=== PATIENT | male | born 1980 | race Caucasian/White ===

== ENCOUNTER 2020-10-02 10:54 | Inpatient (IN) | payer OTHER ==
[2020-10-02] MEDS ORDERED: MAGNESIUM HYDROX 2400MG/30ML ORAL SUSPENSION 30 ML CUP PO PRN (13:05)
[2020-10-02] MEDS ORDERED: METHADONE HCL 10 MG TABLET (FOR DETOX USE ONLY) PO ONE (13:05)
[2020-10-02] MEDS ORDERED: BISMUTH SUBSALICYLATE 262 MG/15 ML BTL PO PRN (13:05)
[2020-10-02] MEDS ORDERED: MAGNESIUM CITRATE 300 ML BOTTLE PO PRN (13:05)
[2020-10-02] MEDS ORDERED: NICOTINE POLACRILEX 2 MG GUM BUC PRN (13:05)
[2020-10-02] MEDS ORDERED: MENTHOL/PHENOL 1 EACH UD MM PRN (13:05)
[2020-10-02] MEDS ORDERED: MAG HYDROX/AL HYDROX/SIMETH 30 ML UNIT-DOSE CUP PO PRN (13:05)
[2020-10-02] MEDS ORDERED: IBUPROFEN 400 MG TABLET (FP) PO PRN (13:05)
[2020-10-02] MEDS ORDERED: ONDANSETRON *ODT* 4 MG TABLET SL PRN (13:05)
[2020-10-02] MEDS ORDERED: ACETAMINOPHEN 325 MG TABLET (FP) PO PRN ×2 (13:05)
[2020-10-02 13:07] VITALS: BMI 21.4
[2020-10-02] MEDS: hydrOXYzine PAMOATE 25 MG CAPSULE (FP) PO SCH ×3 (14:15→22:16)
[2020-10-02] MEDS: NICOTINE 14 MG/24 HOURS TOPICAL PATCH TD SCH (14:19)
[2020-10-02 17:21] LABS: HEMATOCRIT 36.5 % (35.4-49); HEMOGLOBIN 11.9 GM/dL (11.7-16.9); MCH 27.9 pg (25.7-33.7); MCHC 32.5 g/dl (32.0-35.9); MEAN CELL VOLUME 85.9 fl (80-96); MEAN PLT VOLUME 8.4 fl (7.5-11.1); PLATELET COUNT 235 K/MM3 (134-434); RBC 4.25 M/mm3 (4.00-5.60); RDW 14.2 % (11.9-15.9); WHITE BLOOD COUNT 5.4 K/mm3 (4.0-10.0)
[2020-10-02 17:22] LABS: POTASSIUM 4.6 mmol/L (3.5-5.1)
[2020-10-02 17:27] LABS: ALBUMIN 3.4 g/dl (3.4-5.0); BLOOD UREA NITROGEN 14.5 mg/dL (7-18); CALCIUM 8.6 mg/dL (8.5-10.1)
[2020-10-02 17:30] LABS: CREATININE 0.8 mg/dL (0.55-1.3)
[2020-10-02 17:31] LABS: BILIRUBIN,TOTAL 0.6 mg/dL (0.2-1); TOT PROT 7.2 g/dl (6.4-8.2)
[2020-10-02] MEDS: THIAMINE HCL 100 MG TABLET (FP) PO SCH (22:17)
[2020-10-02] MEDS: MELATONIN 5 MG TABLETS PO SCH (22:17)
[2020-10-03] MEDS: hydrOXYzine PAMOATE 25 MG CAPSULE (FP) PO SCH (06:24)
[2020-10-03] MEDS ORDERED: METHADONE HCL 5 MG TABLET (FOR DETOX USE ONLY) ONE (08:56)
[2020-10-03] MEDS ORDERED: METHADONE HCL 10 MG TABLET (FOR DETOX USE ONLY) ONE (08:56)
[2020-10-03] MEDS ORDERED: METHADONE (DETOX) 20 MG, METHADONE (DETOX) 5 MG PO ONE (10:00)
[2020-10-03] MEDS: PRENATAL VITAMINS W/ FOLIC ACID TABLET (FP) PO SCH (10:56)
[2020-10-03] MEDS: NICOTINE 14 MG/24 HOURS TOPICAL PATCH TD SCH (10:56)
[2020-10-03] MEDS: cloNIDine HCL 0.1 MG TABLET PO PRN (17:06)
[2020-10-03] MEDS: hydrOXYzine PAMOATE 25 MG CAPSULE (FP) PO PRN ×2 (17:06→22:29)
[2020-10-03] MEDS: METHOCARBAMOL 500 MG TABLET PO PRN (17:06)
[2020-10-03] MEDS: MELATONIN 5 MG TABLETS PO SCH (22:29)
[2020-10-03] MEDS: THIAMINE HCL 100 MG TABLET (FP) PO SCH (22:29)
[2020-10-04] MEDS ORDERED: METHADONE HCL 10 MG TABLET (FOR DETOX USE ONLY) PO ONE (10:00)
[2020-10-04] MEDS: NICOTINE 14 MG/24 HOURS TOPICAL PATCH TD SCH (10:27)
[2020-10-04] MEDS: PRENATAL VITAMINS W/ FOLIC ACID TABLET (FP) PO SCH (10:27)
[2020-10-04] MEDS: METHOCARBAMOL 500 MG TABLET PO PRN (22:45)
[2020-10-04] MEDS: cloNIDine HCL 0.1 MG TABLET PO PRN (22:45)
[2020-10-04] MEDS: hydrOXYzine PAMOATE 25 MG CAPSULE (FP) PO PRN (22:46)
[2020-10-04] MEDS: THIAMINE HCL 100 MG TABLET (FP) PO SCH (22:46)
[2020-10-04] MEDS: MELATONIN 5 MG TABLETS PO SCH (22:46)
[2020-10-05] MEDS ORDERED: METHADONE HCL 5 MG TABLET (FOR DETOX USE ONLY) ONE (09:28)
[2020-10-05] MEDS ORDERED: METHADONE HCL 10 MG TABLET (FOR DETOX USE ONLY) ONE (09:28)
[2020-10-05] MEDS ORDERED: METHADONE (DETOX) 10 MG, METHADONE (DETOX) 5 MG PO ONE (10:00)
[2020-10-05] MEDS: PRENATAL VITAMINS W/ FOLIC ACID TABLET (FP) PO SCH (10:29)
[2020-10-05] MEDS: NICOTINE 14 MG/24 HOURS TOPICAL PATCH TD SCH (10:29)
[2020-10-05] MEDS: METHOCARBAMOL 500 MG TABLET PO PRN (19:35)
[2020-10-05] MEDS: hydrOXYzine PAMOATE 25 MG CAPSULE (FP) PO PRN (19:35)
[2020-10-05] MEDS: THIAMINE HCL 100 MG TABLET (FP) PO SCH (22:42)
[2020-10-05] MEDS: MELATONIN 5 MG TABLETS PO SCH (22:42)
[2020-10-06] MEDS: METHADONE HCL 10 MG TABLET (FOR DETOX USE ONLY) PO ONE ×2 (06:54→07:05)
[2020-10-06 08:20] VITALS: BP 95/49; PULSE 53; TEMP 97.1
[2020-10-06] MEDS ORDERED: METHADONE HCL 10 MG TABLET (FOR DETOX USE ONLY) PO ONE (10:00)
[2020-10-07] MEDS ORDERED: METHADONE HCL 5 MG TABLET (FOR DETOX USE ONLY) PO ONE (06:00)
== END 2020-10-06 11:30 | disposition home or self-care (01) | DRG 773 ==
LOC: YASAS 10:54 → Y6N 13:07
PROVIDERS: ADMIT Allergy & Immunology; ATTEND Allergy & Immunology
PROC: HZ2ZZZZ Detoxification Services for Substance Abuse Treatment (ICD-10-PCS; principal; 2020-10-02)
DX: F11.23 Opioid dependence with withdrawal (principal); F14.20 Cocaine dependence, uncomplicated; F17.210 Nicotine dependence, cigarettes, uncomplicated; F19.280 Other psychoactive substance dependence with psychoactive substance-induced anxiety disorder; F19.282 Other psychoactive substance dependence with psychoactive substance-induced sleep disorder; M54.5 Low back pain; G89.29 Other chronic pain; K64.9 Unspecified hemorrhoids; U07.1 COVID-19
CPT/HCPCS: 36415; 80053; 85027; 86780; 93005; 93010; C9803; J0735; Q0162; U0003

== ENCOUNTER 2021-07-25 09:59 | Inpatient (IN) | payer OTHER ==
[2021-07-25 10:46] VITALS: BMI 22.3
[2021-07-25] MEDS ORDERED: ONDANSETRON *ODT* 4 MG TABLET SL PRN (11:05)
[2021-07-25] MEDS ORDERED: MENTHOL/PHENOL 1 EACH UD MM PRN (11:05)
[2021-07-25] MEDS ORDERED: MAG HYDROX/AL HYDROX/SIMETH 30 ML UNIT-DOSE CUP PO PRN (11:05)
[2021-07-25] MEDS ORDERED: cloNIDine HCL 0.1 MG TABLET PO PRN (11:05)
[2021-07-25] MEDS ORDERED: MAGNESIUM HYDROX 2400MG/30ML ORAL SUSPENSION 30 ML CUP PO PRN (11:05)
[2021-07-25] MEDS ORDERED: BISMUTH SUBSALICYLATE 524 MG/30 ML PO PRN (11:05)
[2021-07-25] MEDS ORDERED: MAGNESIUM CITRATE 300 ML BOTTLE PO PRN (11:05)
[2021-07-25] MEDS ORDERED: ACETAMINOPHEN 325 MG TABLET (FP) PO PRN (11:05)
[2021-07-25] MEDS ORDERED: methaDONE HCL 10 MG TABLET (FOR DETOX USE ONLY) ONE (11:22)
[2021-07-25] MEDS: methaDONE HCL 10 MG TABLET (FOR DETOX USE ONLY) PO ONE (11:25)
[2021-07-25] MEDS: PRENATAL VITAMINS W/ FOLIC ACID TABLET (FP) PO SCH (12:45)
[2021-07-25] MEDS: ACETAMINOPHEN 325 MG TABLET (FP) PO PRN (12:45)
[2021-07-25] MEDS: NICOTINE 14 MG/24 HOURS TOPICAL PATCH TD SCH (12:47)
[2021-07-25 13:56] LABS: HEMATOCRIT 40.7 % (35.4-49); HEMOGLOBIN 13.7 GM/dL (11.7-16.9); MCH 28.9 pg (25.7-33.7); MCHC 33.7 g/dl (32.0-35.9); MEAN CELL VOLUME 85.7 fl (80-96); PLATELET COUNT 343 10^3/uL (134-434); RBC 4.75 M/mm3 (4.00-5.60); RDW 15.1 % (11.9-15.9); WHITE BLOOD COUNT 11.4 K/mm3 (4.0-10.0)
[2021-07-25] MEDS: hydrOXYzine PAMOATE 25 MG CAPSULE (FP) PO SCH ×3 (14:10→22:12)
[2021-07-25 14:24] LABS: CALCIUM 8.9 mg/dL (8.5-10.1)
[2021-07-25 14:25] LABS: ALBUMIN 3.8 g/dl (3.4-5.0); BLOOD UREA NITROGEN 17.1 mg/dL (7-18)
[2021-07-25 14:28] LABS: CREATININE 1.2 mg/dL (0.55-1.3)
[2021-07-25 14:30] LABS: BILIRUBIN,TOTAL 2.1 mg/dL (0.2-1); TOT PROT 8.3 g/dl (6.4-8.2)
[2021-07-25 14:59] LABS: HIV INTERPRETATION NEGATIVE (NEGATIVE)
[2021-07-25] MEDS ORDERED: MASKS NR ONE (20:41)
[2021-07-25] MEDS: THIAMINE HCL 100 MG TABLET (FP) PO SCH (22:12)
[2021-07-25] MEDS: MELATONIN 5 MG TABLETS PO SCH (22:12)
[2021-07-25] MEDS: clonazePAM 0.5 MG ODT TABLETS SL PRN (22:14)
[2021-07-25] MEDS: METHOCARBAMOL 500 MG TABLET PO PRN (22:14)
[2021-07-26] MEDS: IBUPROFEN 400 MG TABLET (FP) PO PRN (03:42)
[2021-07-26] MEDS: hydrOXYzine PAMOATE 25 MG CAPSULE (FP) PO SCH ×5 (05:38→22:07)
[2021-07-26] MEDS ORDERED: methaDONE HCL 10 MG TABLET (FOR DETOX USE ONLY) ONE (09:44)
[2021-07-26] MEDS: PRENATAL VITAMINS W/ FOLIC ACID TABLET (FP) PO SCH (10:40)
[2021-07-26] MEDS: NICOTINE 14 MG/24 HOURS TOPICAL PATCH TD SCH (10:41)
[2021-07-26] MEDS: NICOTINE POLACRILEX 2 MG GUM BC PRN (14:25)
[2021-07-26] MEDS: NICOTINE 21 MG/24 HOURS TOPICAL PATCH TD SCH (14:30)
[2021-07-26] MEDS: MELATONIN 5 MG TABLETS PO SCH (22:06)
[2021-07-26] MEDS: ACETAMINOPHEN 325 MG TABLET (FP) PO PRN (22:07)
[2021-07-26] MEDS: THIAMINE HCL 100 MG TABLET (FP) PO SCH (22:07)
[2021-07-26] MEDS: clonazePAM 0.5 MG ODT TABLETS SL PRN (22:08)
[2021-07-27] MEDS: hydrOXYzine PAMOATE 25 MG CAPSULE (FP) PO SCH ×5 (06:32→22:19)
[2021-07-27 09:57] LABS: HEMATOCRIT 37.2 % (35.4-49); HEMOGLOBIN 12.6 GM/dL (11.7-16.9); MCHC 33.8 g/dl (32.0-35.9); MEAN CELL VOLUME 85.7 fl (80-96); MEAN PLT VOLUME 7.9 fl (7.5-11.1); PLATELET COUNT 253 10^3/uL (134-434); RBC 4.34 M/mm3 (4.00-5.60); RDW 15.4 % (11.9-15.9); WHITE BLOOD COUNT 9.4 K/mm3 (4.0-10.0)
[2021-07-27] MEDS ORDERED: methaDONE HCL 10 MG TABLET (FOR DETOX USE ONLY) PO ONE (10:00)
[2021-07-27] MEDS: NICOTINE 21 MG/24 HOURS TOPICAL PATCH TD SCH (10:17)
[2021-07-27] MEDS: IBUPROFEN 400 MG TABLET (FP) PO PRN ×2 (10:18→22:21)
[2021-07-27] MEDS: PRENATAL VITAMINS W/ FOLIC ACID TABLET (FP) PO SCH (10:19)
[2021-07-27] MEDS: NICOTINE 10 MG CARTRIDGE (INHALER) IH PRN ×2 (14:45→21:18)
[2021-07-27] MEDS: MELATONIN 5 MG TABLETS PO SCH (22:19)
[2021-07-27] MEDS: THIAMINE HCL 100 MG TABLET (FP) PO SCH (22:19)
[2021-07-27] MEDS: METHOCARBAMOL 500 MG TABLET PO PRN (23:51)
[2021-07-28] MEDS: hydrOXYzine PAMOATE 25 MG CAPSULE (FP) PO SCH ×5 (06:04→22:16)
[2021-07-28] MEDS ORDERED: methaDONE HCL 10 MG TABLET (FOR DETOX USE ONLY) ONE (09:03)
[2021-07-28] MEDS: METHOCARBAMOL 500 MG TABLET PO PRN ×2 (10:12→22:18)
[2021-07-28] MEDS: PRENATAL VITAMINS W/ FOLIC ACID TABLET (FP) PO SCH (10:12)
[2021-07-28] MEDS: NICOTINE 21 MG/24 HOURS TOPICAL PATCH TD SCH (10:12)
[2021-07-28] MEDS: clonazePAM 0.5 MG ODT TABLETS SL PRN (10:13)
[2021-07-28] MEDS: NICOTINE 10 MG CARTRIDGE (INHALER) IH PRN ×2 (13:38→22:20)
[2021-07-28] MEDS: IBUPROFEN 400 MG TABLET (FP) PO PRN ×2 (13:40→22:18)
[2021-07-28] MEDS ORDERED: WITCH HAZEL 50% (TUCKS) 40 PAD/JAR PAD TP PRN (13:53)
[2021-07-28] MEDS: HYDROCORTISONE 2.5% TOPICAL CREAM 30 GM TUBE TP SCH ×2 (15:18→22:17)
[2021-07-28] MEDS: ACETAMINOPHEN 325 MG TABLET (FP) PO PRN (18:09)
[2021-07-28] MEDS: THIAMINE HCL 100 MG TABLET (FP) PO SCH (22:16)
[2021-07-28] MEDS: MELATONIN 5 MG TABLETS PO SCH (22:16)
[2021-07-29] MEDS: hydrOXYzine PAMOATE 25 MG CAPSULE (FP) PO SCH ×5 (05:31→22:15)
[2021-07-29] MEDS: ACETAMINOPHEN 325 MG TABLET (FP) PO PRN ×2 (05:32→22:16)
[2021-07-29] MEDS: NICOTINE 21 MG/24 HOURS TOPICAL PATCH TD SCH (09:51)
[2021-07-29] MEDS: PRENATAL VITAMINS W/ FOLIC ACID TABLET (FP) PO SCH (09:51)
[2021-07-29] MEDS: NICOTINE 10 MG CARTRIDGE (INHALER) IH PRN ×3 (09:52→22:17)
[2021-07-29] MEDS: HYDROCORTISONE 2.5% TOPICAL CREAM 30 GM TUBE TP SCH ×2 (09:54→22:50)
[2021-07-29] MEDS ORDERED: methaDONE HCL 10 MG TABLET (FOR DETOX USE ONLY) PO ONE (10:00)
[2021-07-29] MEDS: NICOTINE POLACRILEX 2 MG GUM BC PRN (13:24)
[2021-07-29] MEDS: IBUPROFEN 400 MG TABLET (FP) PO PRN (18:02)
[2021-07-29] MEDS: THIAMINE HCL 100 MG TABLET (FP) PO SCH (22:15)
[2021-07-29] MEDS: MELATONIN 5 MG TABLETS PO SCH (22:15)
[2021-07-30] MEDS: ACETAMINOPHEN 325 MG TABLET (FP) PO PRN (05:45)
[2021-07-30] MEDS: hydrOXYzine PAMOATE 25 MG CAPSULE (FP) PO SCH ×2 (05:46→10:37)
[2021-07-30 06:17] VITALS: TEMP 96.9
[2021-07-30] MEDS: NICOTINE 10 MG CARTRIDGE (INHALER) IH PRN (09:37)
[2021-07-30 09:54] VITALS: BP 127/82; PULSE 74
[2021-07-30] MEDS: PRENATAL VITAMINS W/ FOLIC ACID TABLET (FP) PO SCH (10:37)
[2021-07-30] MEDS: NICOTINE 21 MG/24 HOURS TOPICAL PATCH TD SCH (10:38)
[2021-07-30] MEDS: HYDROCORTISONE 2.5% TOPICAL CREAM 30 GM TUBE TP SCH (10:40)
== END 2021-07-30 10:57 | disposition other institution (70) | DRG 773 ==
LOC: YASAS 09:59 → Y3N 11:18
PROVIDERS: ADMIT Allergy & Immunology; ATTEND Allergy & Immunology
PROC: HZ2ZZZZ Detoxification Services for Substance Abuse Treatment (ICD-10-PCS; principal; 2021-07-25)
DX: F11.23 Opioid dependence with withdrawal (principal); F14.20 Cocaine dependence, uncomplicated; F17.210 Nicotine dependence, cigarettes, uncomplicated; F19.280 Other psychoactive substance dependence with psychoactive substance-induced anxiety disorder; F19.282 Other psychoactive substance dependence with psychoactive substance-induced sleep disorder; F41.9 Anxiety disorder, unspecified; K64.9 Unspecified hemorrhoids; M54.50 Low back pain, unspecified; G89.29 Other chronic pain; Z62.810 Personal history of physical and sexual abuse in childhood; Z86.16 Personal history of COVID-19; Z59.01 Sheltered homelessness; Z56.0 Unemployment, unspecified
CPT/HCPCS: 36415; 80053; 82247; 85027; 86780; 87389; C9803; J0735; Q0162; U0003; U0005

== ENCOUNTER 2021-12-07 17:08 | Inpatient (IN) | payer OTHER ==
[2021-12-07 17:48] VITALS: BMI 25.9
[2021-12-08] MEDS ORDERED: ACETAMINOPHEN 325 MG TABLET (FP) PO PRN ×2 (00:01)
[2021-12-08] MEDS ORDERED: MAG HYDROX/AL HYDROX/SIMETH 30 ML UNIT-DOSE CUP PO PRN (00:01)
[2021-12-08] MEDS ORDERED: LOPERAMIDE HCL 2 MG CAPSULE PO PRN (00:01)
[2021-12-08] MEDS ORDERED: MENTHOL/PHENOL 1 EACH UD MM PRN (00:01)
[2021-12-08] MEDS ORDERED: MAGNESIUM CITRATE 300 ML BOTTLE PO PRN (00:01)
[2021-12-08] MEDS ORDERED: MAGNESIUM HYDROX 2400MG/30ML ORAL SUSPENSION 30 ML CUP PO PRN (00:01)
[2021-12-08] MEDS ORDERED: ONDANSETRON *ODT* 4 MG TABLET SL PRN (00:01)
[2021-12-08] MEDS ORDERED: NICOTINE POLACRILEX 2 MG GUM BUC PRN (00:01)
[2021-12-08] MEDS ORDERED: methaDONE HCL 10 MG TABLET (FOR DETOX USE ONLY) PO ONE (00:01)
[2021-12-08] MEDS ORDERED: BISMUTH SUBSALICYLATE 524 MG/30 ML PO PRN (00:01)
[2021-12-08] MEDS: hydrOXYzine PAMOATE 25 MG CAPSULE (FP) PO PRN ×3 (01:14→22:19)
[2021-12-08] MEDS: NICOTINE 21 MG/24 HOURS TOPICAL PATCH TD SCH (10:50)
[2021-12-08] MEDS: PRENATAL VITAMINS W/ FOLIC ACID TABLET (FP) PO SCH (10:50)
[2021-12-08] MEDS: cloNIDine HCL 0.1 MG TABLET PO PRN ×2 (10:50→22:21)
[2021-12-08] MEDS: NICOTINE 10 MG CARTRIDGE (INHALER) IH PRN (20:10)
[2021-12-08] MEDS: THIAMINE HCL 100 MG TABLET (FP) PO SCH (22:19)
[2021-12-08] MEDS: METHOCARBAMOL 500 MG TABLET PO PRN (22:19)
[2021-12-08] MEDS: IBUPROFEN 400 MG TABLET (FP) PO PRN (22:19)
[2021-12-08] MEDS: MELATONIN 5 MG TABLETS PO SCH (22:19)
[2021-12-09] MEDS ORDERED: methaDONE HCL 10 MG TABLET (FOR DETOX USE ONLY) ONE (09:10)
[2021-12-09] MEDS: NICOTINE 21 MG/24 HOURS TOPICAL PATCH TD SCH (10:33)
[2021-12-09] MEDS: cloNIDine HCL 0.1 MG TABLET PO PRN (10:34)
[2021-12-09] MEDS: hydrOXYzine PAMOATE 25 MG CAPSULE (FP) PO PRN ×2 (10:34→22:47)
[2021-12-09] MEDS: PRENATAL VITAMINS W/ FOLIC ACID TABLET (FP) PO SCH (10:34)
[2021-12-09] MEDS: METHOCARBAMOL 500 MG TABLET PO PRN (22:46)
[2021-12-09] MEDS: MELATONIN 5 MG TABLETS PO SCH (22:47)
[2021-12-09] MEDS: THIAMINE HCL 100 MG TABLET (FP) PO SCH (22:47)
[2021-12-09] MEDS: IBUPROFEN 400 MG TABLET (FP) PO PRN (22:48)
[2021-12-10] MEDS ORDERED: methaDONE HCL 10 MG TABLET (FOR DETOX USE ONLY) PO ONE (10:00)
[2021-12-10] MEDS: NICOTINE 21 MG/24 HOURS TOPICAL PATCH TD SCH (10:54)
[2021-12-10] MEDS: diazePAM 5 MG TABLET PO PRN ×2 (10:55→22:13)
[2021-12-10] MEDS: PRENATAL VITAMINS W/ FOLIC ACID TABLET (FP) PO SCH (10:57)
[2021-12-10 11:53] LABS: HEMATOCRIT 39.8 % (35.4-49); HEMOGLOBIN 13.1 GM/dL (11.7-16.9); MCH 27.7 pg (25.7-33.7); MCHC 32.9 g/dl (32.0-35.9); MEAN CELL VOLUME 84.3 fl (80-96); MEAN PLT VOLUME 7.5 fl (7.5-11.1); PLATELET COUNT 281 10^3/uL (134-434); RBC 4.71 M/mm3 (4.00-5.60); RDW 15.7 % (11.9-15.9); WHITE BLOOD COUNT 7.9 K/mm3 (4.0-10.0)
[2021-12-10 12:08] LABS: CALCIUM 8.9 mg/dL (8.5-10.1)
[2021-12-10 12:09] LABS: ALBUMIN 3.5 g/dl (3.4-5.0)
[2021-12-10 12:10] LABS: BLOOD UREA NITROGEN 18.6 mg/dL (7-18)
[2021-12-10 12:13] LABS: TOT PROT 7.3 g/dl (6.4-8.2)
[2021-12-10] MEDS: hydrOXYzine PAMOATE 25 MG CAPSULE (FP) PO PRN (22:14)
[2021-12-10] MEDS: MELATONIN 5 MG TABLETS PO SCH (22:14)
[2021-12-10] MEDS: THIAMINE HCL 100 MG TABLET (FP) PO SCH (22:14)
[2021-12-10] MEDS: METHOCARBAMOL 500 MG TABLET PO PRN (22:15)
[2021-12-11] MEDS ORDERED: methaDONE HCL 10 MG TABLET (FOR DETOX USE ONLY) ONE (09:14)
[2021-12-11] MEDS: NICOTINE 21 MG/24 HOURS TOPICAL PATCH TD SCH (10:12)
[2021-12-11] MEDS: PRENATAL VITAMINS W/ FOLIC ACID TABLET (FP) PO SCH (10:15)
[2021-12-11] MEDS: diazePAM 5 MG TABLET PO PRN ×2 (10:19→22:27)
[2021-12-11] MEDS: IBUPROFEN 400 MG TABLET (FP) PO PRN (17:34)
[2021-12-11] MEDS: MELATONIN 5 MG TABLETS PO SCH (22:26)
[2021-12-11] MEDS: NICOTINE 10 MG CARTRIDGE (INHALER) IH PRN (22:28)
[2021-12-11] MEDS: METHOCARBAMOL 500 MG TABLET PO PRN (22:28)
[2021-12-11] MEDS: THIAMINE HCL 100 MG TABLET (FP) PO SCH (22:28)
[2021-12-11] MEDS: hydrOXYzine PAMOATE 25 MG CAPSULE (FP) PO PRN (22:30)
[2021-12-12] MEDS ORDERED: methaDONE HCL 10 MG TABLET (FOR DETOX USE ONLY) PO ONE (10:00)
[2021-12-12] MEDS: METHOCARBAMOL 500 MG TABLET PO PRN (10:33)
[2021-12-12] MEDS: diazePAM 5 MG TABLET PO PRN ×2 (10:33→22:11)
[2021-12-12] MEDS: NICOTINE 21 MG/24 HOURS TOPICAL PATCH TD SCH (10:35)
[2021-12-12] MEDS: PRENATAL VITAMINS W/ FOLIC ACID TABLET (FP) PO SCH (10:35)
[2021-12-12 12:14] LABS: SARS-CoV-2 NAA Not Detected
[2021-12-12] MEDS: NICOTINE 10 MG CARTRIDGE (INHALER) IH PRN ×2 (14:38→22:41)
[2021-12-12] MEDS: THIAMINE HCL 100 MG TABLET (FP) PO SCH (22:09)
[2021-12-12] MEDS: MELATONIN 5 MG TABLETS PO SCH (22:09)
[2021-12-12] MEDS: IBUPROFEN 400 MG TABLET (FP) PO PRN (22:11)
[2021-12-13] MEDS: IBUPROFEN 400 MG TABLET (FP) PO PRN (06:22)
[2021-12-13 08:53] VITALS: BP 138/87; PULSE 69; TEMP 98
[2021-12-13] MEDS: PRENATAL VITAMINS W/ FOLIC ACID TABLET (FP) PO SCH (09:25)
[2021-12-13] MEDS: NICOTINE 21 MG/24 HOURS TOPICAL PATCH TD SCH (09:25)
== END 2021-12-13 09:42 | disposition home or self-care (01) | DRG 773 ==
LOC: YASAS 17:08 → Y3N 23:15
PROVIDERS: ADMIT Allergy & Immunology; ATTEND Allergy & Immunology
PROC: HZ2ZZZZ Detoxification Services for Substance Abuse Treatment (ICD-10-PCS; principal; 2021-12-07)
DX: F11.23 Opioid dependence with withdrawal (principal); F14.20 Cocaine dependence, uncomplicated; F17.210 Nicotine dependence, cigarettes, uncomplicated; F41.8 Other specified anxiety disorders; F32.A Depression, unspecified; F43.10 Post-traumatic stress disorder, unspecified; M51.26 Other intervertebral disc displacement, lumbar region; Z62.810 Personal history of physical and sexual abuse in childhood; Z86.59 Personal history of other mental and behavioral disorders; Z56.0 Unemployment, unspecified; Z59.00 Homelessness unspecified
CPT/HCPCS: 36415; 80053; 85027; 86780; 93005; 93010; C9803; J0735; Q0162; U0003; U0005

== ENCOUNTER 2022-03-18 13:18 | Inpatient (IN) | payer OTHER ==
[2022-03-18 16:40] VITALS: BMI 26.8
[2022-03-18] MEDS ORDERED: BISMUTH SUBSALICYLATE 524 MG/30 ML PO PRN (17:01)
[2022-03-18] MEDS ORDERED: ONDANSETRON *ODT* 4 MG TABLET SL PRN (17:01)
[2022-03-18] MEDS ORDERED: NICOTINE POLACRILEX 2 MG GUM BUC PRN (17:01)
[2022-03-18] MEDS ORDERED: BENZOCAINE/MENTHOL (CHLORASEPTIC ) LOZENGE MM PRN (17:01)
[2022-03-18] MEDS ORDERED: DICYCLOMINE HCL 10 MG CAPSULE PO PRN (17:01)
[2022-03-18] MEDS ORDERED: IBUPROFEN 400 MG TABLET (FP) PO PRN (17:01)
[2022-03-18] MEDS ORDERED: LOPERAMIDE HCL 2 MG CAPSULE PO PRN (17:01)
[2022-03-18] MEDS ORDERED: MAGNESIUM CITRATE 300 ML BOTTLE PO PRN (17:01)
[2022-03-18] MEDS ORDERED: hydrOXYzine PAMOATE 25 MG CAPSULE (FP) PO PRN (17:01)
[2022-03-18] MEDS ORDERED: ACETAMINOPHEN 325 MG TABLET (FP) PO PRN ×2 (17:01)
[2022-03-18] MEDS ORDERED: MAG HYDROX/AL HYDROX/SIMETH 30 ML UNIT-DOSE CUP PO PRN (17:01)
[2022-03-18] MEDS ORDERED: MAGNESIUM HYDROX 2400MG/30ML ORAL SUSPENSION 30 ML CUP PO PRN (17:01)
[2022-03-18] MEDS: THIAMINE HCL 100 MG TABLET (FP) PO SCH (22:41)
[2022-03-18] MEDS: SULFAMETHOXAZOLE/TRIMETHOPRIM 800MG/160MG D.S. TABLET PO SCH (22:41)
[2022-03-19] MEDS ORDERED: cloNIDine HCL 0.1 MG TABLET PO PRN (09:48)
[2022-03-19] MEDS ORDERED: methaDONE HCL 10 MG TABLET (FOR DETOX USE ONLY) PO ONE (09:48)
[2022-03-19] MEDS: PRENATAL VITAMINS W/ FOLIC ACID TABLET (FP) PO SCH (10:53)
[2022-03-19] MEDS: SULFAMETHOXAZOLE/TRIMETHOPRIM 800MG/160MG D.S. TABLET PO SCH ×2 (10:53→22:43)
[2022-03-19] MEDS: METHOCARBAMOL 500 MG TABLET PO PRN ×2 (10:53→22:41)
[2022-03-19] MEDS: diazePAM 5 MG TABLET PO PRN (22:41)
[2022-03-19] MEDS: THIAMINE HCL 100 MG TABLET (FP) PO SCH (22:43)
[2022-03-20] MEDS ORDERED: methaDONE HCL 10 MG TABLET (FOR DETOX USE ONLY) ONE (09:58)
[2022-03-20] MEDS: PRENATAL VITAMINS W/ FOLIC ACID TABLET (FP) PO SCH (10:31)
[2022-03-20] MEDS: SULFAMETHOXAZOLE/TRIMETHOPRIM 800MG/160MG D.S. TABLET PO SCH ×2 (10:31→22:19)
[2022-03-20] MEDS: diazePAM 5 MG TABLET PO PRN ×2 (10:31→22:19)
[2022-03-20] MEDS: METHOCARBAMOL 500 MG TABLET PO PRN (10:31)
[2022-03-20 10:54] LABS: HEMATOCRIT 37.7 % (35.4-49); HEMOGLOBIN 12.5 GM/dL (11.7-16.9); MCH 27.7 pg (25.7-33.7); MCHC 33.3 g/dl (32.0-35.9); MEAN CELL VOLUME 83.2 fl (80-96); MEAN PLT VOLUME 8.3 fl (7.5-11.1); PLATELET COUNT 240 10^3/uL (134-434); RBC 4.53 M/mm3 (4.00-5.60); WHITE BLOOD COUNT 6.7 K/mm3 (4.0-10.0)
[2022-03-20 10:59] LABS: CALCIUM 9.1 mg/dL (8.5-10.1)
[2022-03-20 11:00] LABS: ALBUMIN 3.3 g/dl (3.4-5.0); BLOOD UREA NITROGEN 10.2 mg/dL (7-18)
[2022-03-20 11:03] LABS: CREATININE 0.9 mg/dL (0.55-1.3)
[2022-03-20 11:04] LABS: BILIRUBIN,TOTAL 0.8 mg/dL (0.2-1); TOT PROT 6.9 g/dl (6.4-8.2)
[2022-03-20 16:08] LABS: SARS-CoV-2 NAA Not Detected (Not Detected)
[2022-03-20] MEDS: THIAMINE HCL 100 MG TABLET (FP) PO SCH (22:19)
[2022-03-21] MEDS ORDERED: methaDONE HCL 10 MG TABLET (FOR DETOX USE ONLY) PO ONE (10:00)
[2022-03-21] MEDS: METHOCARBAMOL 500 MG TABLET PO PRN (10:32)
[2022-03-21] MEDS: diazePAM 5 MG TABLET PO PRN ×2 (10:32→21:33)
[2022-03-21] MEDS: SULFAMETHOXAZOLE/TRIMETHOPRIM 800MG/160MG D.S. TABLET PO SCH ×2 (10:32→21:28)
[2022-03-21] MEDS: PRENATAL VITAMINS W/ FOLIC ACID TABLET (FP) PO SCH (10:32)
[2022-03-21] MEDS: THIAMINE HCL 100 MG TABLET (FP) PO SCH (21:28)
[2022-03-22] MEDS ORDERED: methaDONE HCL 10 MG TABLET (FOR DETOX USE ONLY) ONE (09:18)
[2022-03-22] MEDS: diazePAM 5 MG TABLET PO PRN (09:40)
[2022-03-22] MEDS: PRENATAL VITAMINS W/ FOLIC ACID TABLET (FP) PO SCH (10:50)
[2022-03-22] MEDS: SULFAMETHOXAZOLE/TRIMETHOPRIM 800MG/160MG D.S. TABLET PO SCH ×2 (10:50→22:50)
[2022-03-22] MEDS: NICOTINE 10 MG CARTRIDGE (INHALER) IH SCH (14:19)
[2022-03-22] MEDS: MELATONIN 5 MG TABLETS PO PRN (22:50)
[2022-03-22] MEDS: THIAMINE HCL 100 MG TABLET (FP) PO SCH (22:50)
[2022-03-22] MEDS: METHOCARBAMOL 500 MG TABLET PO PRN (22:52)
[2022-03-23] MEDS ORDERED: methaDONE HCL 10 MG TABLET (FOR DETOX USE ONLY) PO ONE (10:00)
[2022-03-23] MEDS: SULFAMETHOXAZOLE/TRIMETHOPRIM 800MG/160MG D.S. TABLET PO SCH ×2 (10:14→23:05)
[2022-03-23] MEDS: NICOTINE 10 MG CARTRIDGE (INHALER) IH SCH (10:15)
[2022-03-23] MEDS: PRENATAL VITAMINS W/ FOLIC ACID TABLET (FP) PO SCH (10:16)
[2022-03-23] MEDS: diazePAM 5 MG TABLET PO PRN ×2 (10:17→23:06)
[2022-03-23] MEDS: THIAMINE HCL 100 MG TABLET (FP) PO SCH (23:05)
[2022-03-23] MEDS: METHOCARBAMOL 500 MG TABLET PO PRN (23:05)
[2022-03-23] MEDS: MELATONIN 5 MG TABLETS PO PRN (23:08)
[2022-03-24] MEDS: diazePAM 5 MG TABLET PO PRN ×2 (05:50→10:31)
[2022-03-24 09:03] VITALS: BP 103/58; PULSE 65; TEMP 96.8
[2022-03-24] MEDS: NICOTINE 10 MG CARTRIDGE (INHALER) IH SCH (10:09)
[2022-03-24] MEDS: PRENATAL VITAMINS W/ FOLIC ACID TABLET (FP) PO SCH (10:29)
[2022-03-24] MEDS: SULFAMETHOXAZOLE/TRIMETHOPRIM 800MG/160MG D.S. TABLET PO SCH (10:29)
== END 2022-03-24 11:00 | disposition home or self-care (01) | DRG 773 ==
LOC: YASAS 13:18 → Y3N 17:39
PROVIDERS: ADMIT Allergy & Immunology; ATTEND Surgery
PROC: HZ2ZZZZ Detoxification Services for Substance Abuse Treatment (ICD-10-PCS; principal; 2022-03-18)
DX: F11.23 Opioid dependence with withdrawal (principal); F14.20 Cocaine dependence, uncomplicated; F17.210 Nicotine dependence, cigarettes, uncomplicated; F41.9 Anxiety disorder, unspecified; F43.10 Post-traumatic stress disorder, unspecified; M54.50 Low back pain, unspecified; G89.29 Other chronic pain; R26.89 Other abnormalities of gait and mobility; Z99.89 Dependence on other enabling machines and devices
CPT/HCPCS: 36415; 80053; 85027; 86780; C9803-CS; Q0162; U0003; U0005

== ENCOUNTER 2022-04-14 12:19 | Inpatient (IN) | payer OTHER ==
[2022-04-14 13:32] VITALS: BMI 27.1
[2022-04-14] MEDS ORDERED: ONDANSETRON *ODT* 4 MG TABLET SL PRN (16:02)
[2022-04-14] MEDS ORDERED: MAGNESIUM HYDROX 2400MG/30ML ORAL SUSPENSION 30 ML CUP PO PRN (16:02)
[2022-04-14] MEDS ORDERED: MAG HYDROX/AL HYDROX/SIMETH 30 ML UNIT-DOSE CUP PO PRN (16:02)
[2022-04-14] MEDS ORDERED: cloNIDine HCL 0.1 MG TABLET PO PRN (16:02)
[2022-04-14] MEDS ORDERED: BISMUTH SUBSALICYLATE 524 MG/30 ML PO PRN (16:02)
[2022-04-14] MEDS ORDERED: BENZOCAINE/MENTHOL (CHLORASEPTIC ) LOZENGE MM PRN (16:02)
[2022-04-14] MEDS ORDERED: ACETAMINOPHEN 325 MG TABLET (FP) PO PRN ×2 (16:02)
[2022-04-14] MEDS ORDERED: NICOTINE POLACRILEX 2 MG GUM BUC PRN (16:02)
[2022-04-14] MEDS ORDERED: MAGNESIUM CITRATE 300 ML BOTTLE PO PRN (16:02)
[2022-04-14] MEDS ORDERED: DICYCLOMINE HCL 10 MG CAPSULE PO PRN (16:02)
[2022-04-14] MEDS ORDERED: LOPERAMIDE HCL 2 MG CAPSULE PO PRN (16:02)
[2022-04-14] MEDS ORDERED: methaDONE HCL 10 MG TABLET (FOR DETOX USE ONLY) PO ONE ×2 (16:02→20:45)
[2022-04-14] MEDS ORDERED: IBUPROFEN 400 MG TABLET (FP) PO PRN (16:02)
[2022-04-14] MEDS: hydrOXYzine PAMOATE 25 MG CAPSULE (FP) PO SCH ×2 (20:51→22:38)
[2022-04-14] MEDS: NICOTINE 10 MG CARTRIDGE (INHALER) IH PRN ×2 (20:54→23:00)
[2022-04-14] MEDS ORDERED: MELATONIN 5 MG TABLETS PO SCH (22:00)
[2022-04-14] MEDS: THIAMINE HCL 100 MG TABLET (FP) PO SCH (22:38)
[2022-04-14] MEDS: diazePAM 5 MG TABLET PO PRN (22:40)
[2022-04-14] MEDS: HYDROCORTISONE 2.5% TOPICAL CREAM 30 GM TUBE PR SCH (23:55)
[2022-04-15] MEDS: hydrOXYzine PAMOATE 25 MG CAPSULE (FP) PO SCH ×5 (06:16→22:41)
[2022-04-15] MEDS ORDERED: methaDONE HCL 10 MG TABLET (FOR DETOX USE ONLY) ONE (09:21)
[2022-04-15 10:48] LABS: HEMOGLOBIN 11.4 GM/dL (11.7-16.9); RDW 15.8 % (11.9-15.9); WHITE BLOOD COUNT 6.4 K/mm3 (4.0-10.0)
[2022-04-15 10:50] LABS: ALBUMIN 2.9 g/dl (3.4-5.0)
[2022-04-15 10:51] LABS: HEMATOCRIT 34.3 % (35.4-49); MCH 27.7 pg (25.7-33.7); MCHC 33.1 g/dl (32.0-35.9); MEAN CELL VOLUME 83.4 fl (80-96); MEAN PLT VOLUME 7.8 fl (7.5-11.1); PLATELET COUNT 271 10^3/uL (134-434); RBC 4.11 M/mm3 (4.00-5.60)
[2022-04-15 10:53] LABS: CREATININE 0.9 mg/dL (0.55-1.3)
[2022-04-15 10:55] LABS: BILIRUBIN,TOTAL 0.4 mg/dL (0.2-1); TOT PROT 6.1 g/dl (6.4-8.2)
[2022-04-15 11:07] LABS: CALCIUM 8.3 mg/dL (8.5-10.1)
[2022-04-15] MEDS: PRENATAL VITAMINS W/ FOLIC ACID TABLET (FP) PO SCH (11:08)
[2022-04-15] MEDS: NICOTINE 21 MG/24 HOURS TOPICAL PATCH TD SCH (11:08)
[2022-04-15] MEDS: METHOCARBAMOL 500 MG TABLET PO PRN (11:10)
[2022-04-15] MEDS: diazePAM 5 MG TABLET PO PRN ×2 (14:38→22:58)
[2022-04-15] MEDS: MELATONIN 5 MG TABLETS PO SCH (22:40)
[2022-04-15] MEDS: THIAMINE HCL 100 MG TABLET (FP) PO SCH (22:40)
[2022-04-15] MEDS: HYDROCORTISONE 2.5% TOPICAL CREAM 30 GM TUBE PR SCH (22:41)
[2022-04-15] MEDS: NICOTINE 10 MG CARTRIDGE (INHALER) IH PRN (22:58)
[2022-04-16] MEDS: hydrOXYzine PAMOATE 25 MG CAPSULE (FP) PO SCH ×5 (05:29→22:27)
[2022-04-16] MEDS ORDERED: methaDONE HCL 10 MG TABLET (FOR DETOX USE ONLY) PO ONE (10:00)
[2022-04-16] MEDS: PRENATAL VITAMINS W/ FOLIC ACID TABLET (FP) PO SCH (10:14)
[2022-04-16] MEDS: NICOTINE 21 MG/24 HOURS TOPICAL PATCH TD SCH (10:14)
[2022-04-16] MEDS: METHOCARBAMOL 500 MG TABLET PO PRN (10:14)
[2022-04-16] MEDS: IBUPROFEN 600 MG TABLET (FP) PO PRN (10:16)
[2022-04-16] MEDS: NICOTINE 10 MG CARTRIDGE (INHALER) IH PRN ×2 (14:42→22:28)
[2022-04-16] MEDS: diazePAM 5 MG TABLET PO PRN ×2 (14:43→22:30)
[2022-04-16] MEDS: THIAMINE HCL 100 MG TABLET (FP) PO SCH (22:27)
[2022-04-16] MEDS: MELATONIN 5 MG TABLETS PO SCH (22:27)
[2022-04-16] MEDS: HYDROCORTISONE 2.5% TOPICAL CREAM 30 GM TUBE PR SCH (22:27)
[2022-04-17] MEDS: hydrOXYzine PAMOATE 25 MG CAPSULE (FP) PO SCH ×5 (05:39→22:28)
[2022-04-17] MEDS ORDERED: methaDONE HCL 10 MG TABLET (FOR DETOX USE ONLY) ONE (09:03)
[2022-04-17] MEDS: PRENATAL VITAMINS W/ FOLIC ACID TABLET (FP) PO SCH (09:53)
[2022-04-17] MEDS: diazePAM 5 MG TABLET PO PRN ×2 (09:53→22:27)
[2022-04-17] MEDS: NICOTINE 21 MG/24 HOURS TOPICAL PATCH TD SCH (09:58)
[2022-04-17] MEDS: NICOTINE 10 MG CARTRIDGE (INHALER) IH PRN ×3 (13:03→23:03)
[2022-04-17] MEDS: IBUPROFEN 600 MG TABLET (FP) PO PRN (13:05)
[2022-04-17] MEDS: THIAMINE HCL 100 MG TABLET (FP) PO SCH (22:28)
[2022-04-17] MEDS: MELATONIN 5 MG TABLETS PO SCH (22:28)
[2022-04-17] MEDS: HYDROCORTISONE 2.5% TOPICAL CREAM 30 GM TUBE PR SCH (22:30)
[2022-04-18] MEDS: hydrOXYzine PAMOATE 25 MG CAPSULE (FP) PO SCH ×5 (05:54→22:17)
[2022-04-18] MEDS ORDERED: methaDONE HCL 10 MG TABLET (FOR DETOX USE ONLY) PO ONE (10:00)
[2022-04-18] MEDS: PRENATAL VITAMINS W/ FOLIC ACID TABLET (FP) PO SCH (10:45)
[2022-04-18] MEDS: diazePAM 5 MG TABLET PO PRN ×2 (10:46→22:21)
[2022-04-18] MEDS: NICOTINE 10 MG CARTRIDGE (INHALER) IH PRN (10:56)
[2022-04-18] MEDS: NICOTINE 21 MG/24 HOURS TOPICAL PATCH TD SCH (10:56)
[2022-04-18] MEDS: THIAMINE HCL 100 MG TABLET (FP) PO SCH (22:17)
[2022-04-18] MEDS: MELATONIN 5 MG TABLETS PO SCH (22:17)
[2022-04-18] MEDS: HYDROCORTISONE 2.5% TOPICAL CREAM 30 GM TUBE PR SCH (22:18)
[2022-04-18] MEDS: IBUPROFEN 600 MG TABLET (FP) PO PRN (22:20)
[2022-04-19] MEDS: hydrOXYzine PAMOATE 25 MG CAPSULE (FP) PO SCH (06:07)
[2022-04-19] MEDS: IBUPROFEN 600 MG TABLET (FP) PO PRN (06:09)
[2022-04-19 09:47] VITALS: BP 110/74; PULSE 63; TEMP 97.2
== END 2022-04-19 10:22 | disposition home or self-care (01) | DRG 773 ==
LOC: YASAS 12:19 → Y6N 17:49
PROVIDERS: ADMIT Allergy & Immunology; ATTEND Surgery
PROC: HZ2ZZZZ Detoxification Services for Substance Abuse Treatment (ICD-10-PCS; principal; 2022-04-14)
DX: F11.23 Opioid dependence with withdrawal (principal); F14.20 Cocaine dependence, uncomplicated; F10.10 Alcohol abuse, uncomplicated; F12.20 Cannabis dependence, uncomplicated; F17.210 Nicotine dependence, cigarettes, uncomplicated; F19.280 Other psychoactive substance dependence with psychoactive substance-induced anxiety disorder; F19.282 Other psychoactive substance dependence with psychoactive substance-induced sleep disorder; K64.9 Unspecified hemorrhoids; M54.50 Low back pain, unspecified; G89.29 Other chronic pain; Z99.89 Dependence on other enabling machines and devices; Z56.0 Unemployment, unspecified; Z59.00 Homelessness unspecified; Z98.890 Other specified postprocedural states; Z87.820 Personal history of traumatic brain injury
CPT/HCPCS: 36415; 80053; 85027; 86780; C9803-CS; U0003; U0005